=== PATIENT | male | born 1980 | race Caucasian/White ===

== ENCOUNTER 2018-01-25 02:45 | Emergency (ER) | payer OTHER ==
[2018-01-25] MEDS ORDERED: Fluorescein 0.6 MG Ophth Strip ONE (03:12)
[2018-01-25] MEDS ORDERED: Fluorescein 0.6 MG Ophth Strip EYEBOTH ONE (03:20)
--- NOTE | 2018-01-25 03:34 | EDM.PDOC ---
ED HPI GENERAL MEDICAL PROBLEM - General Chief Complaint: Eye Problems Stated Complaint: EYES BURNING Time Seen by Provider: 01/25/18 03:34 Source of Information: Reports: Patient - History of Present Illness Onset: Today Bilateral Eye Pain Score (Numeric/FACES): 6 - Related Data Allergies Allergy/AdvReac Type Severity Reaction Status Date / Time No Known Allergies Allergy Verified 01/25/18 02:56 Past Medical History - Past Health History Medical/Surgical History: Denies Medical/Surgical History Social & Family History - Tobacco Use Smoking Status *Q: Former Smoker Used Tobacco, but Quit: Yes Month/Year Tobacco Last Used: 2001 - Caffeine Use Caffeine Use: Reports: None - Recreational Drug Use Recreational Drug Use: No ED ROS GENERAL - Review of Systems Review Of Systems: See Below ED EXAM GENERAL W FULL EYE - Physical Exam Exam: See Below Course - Vital Signs Last Recorded V/S: Last Vital Signs Temp 36.6 C 01/25/18 02:51 Pulse 83 01/25/18 02:51 Resp 20 01/25/18 02:51 BP 142/89 H 01/25/18 02:51 Pulse Ox 93 L 01/25/18 02:51 - Orders/Labs/Meds Orders: Active Orders 24 hr Category Date Time Status Gentamicin [Gentak 0.3% Ophth Oint] Med 01/25/18 09:00 Active 1 gm EYEBOTH TID Medication Orders Gentamicin Sulfate (Gentak 0.3% Ophth Oint) 1 gm EYEBOTH TID WESLEY Meds: Medications Generic Name Dose Route Start Last Admin Trade Name Freq PRN Reason Stop Dose Admin Gentamicin Sulfate 1 gm 01/25/18 09:00 Gentak 0.3% Ophth Oint EYEBOTH TID WESLEY Discontinued Medications Generic Name Dose Route Start Last Admin Trade Name Freq PRN Reason Stop Dose Admin Fluorescein Sodium Confirm 01/25/18 03:12 Ful-Ashley Administered 01/25/18 03:13 Dose 0.6 mg .ROUTE .STK-MED ONE Fluorescein Sodium 0.6 mg 01/25/18 03:20 Ful-Ashley EYEBOTH 01/25/18 03:21 ONETIME ONE Gentamicin Sulfate Confirm 01/25/18 03:25 Gentak 0.3% Ophth Oint Administered 01/25/18 03:26 Dose 3.5 gm .ROUTE .STK-MED ONE Departure - Departure Time of Disposition: 03:29 Disposition: Home, Self-Care 01 Condition: Good Clinical Impression: Photokeratitis of both eyes - Discharge Information *PRESCRIPTION DRUG MONITORING PROGRAM REVIEWED*: Not Applicable *COPY OF PRESCRIPTION DRUG MONITORING REPORT IN PATIENT ANGELA: Not Applicable Instructions: Ultraviolet Keratitis, Ttoo-wp-[id number], How to Use Eye Drops and Eye Ointments Referrals: PCP,None [Primary Care Provider] - Additional Instructions: Return to clinic or ER if symptoms worsen or fail to resolve within 4 days. Wear sunglasses. Exercise caution when working around wielding, as we discussed. Apply ointment to eye, as instructed, until symptoms are resolved. - My Orders Last 24 Hours: My Active Orders 01/25/18 09:00 Gentamicin [Gentak 0.3% Ophth Oint] 1 gm EYEBOTH TID - Assessment/Plan Last 24 Hours: My Active Orders 01/25/18 09:00 Gentamicin [Gentak 0.3% Ophth Oint] 1 gm EYEBOTH TID
--- NOTE | 2018-01-25 06:15 | ER ---
REASON FOR EMERGENCY ROOM VISIT: Both eyes burning. 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 Yesterday, he was around some welding and was actually quite close to it. He states that he did not actually look directly at the welding, but looked somewhat to the side. He was not wearing any atomic welder's glasses. He was also around some grinding work that was done, but he states that he did wear a shield at that time. He denies any sensation throughout the day yesterday of any foreign body going into his eyes. When he went to bed last evening around 8 p.m., he was fine, and then he woke this morning to get ready for work and noticed severe burning and swelling of both eyes. He tried to apply drops, but it burned too badly. He rates the pain as a 6/10. It seems to be somewhat worse in the left eye, but both eyes are affected. He states that his vision is slightly foggy as a result of this. PAST MEDICAL HISTORY: See EMR. CURRENT MEDICATIONS: See EMR. REVIEW OF SYSTEMS: Pertinent positives and negatives as in HPI. ALLERGIES: None to medications. PHYSICAL EXAMINATION: VITAL SIGNS: He is afebrile. See EMR. HEENT: Examination of both eyes. He has obvious erythema about his face and both lids. Both upper and lower lids seem slightly edematous. There is erythema on his lids as well consistent with the effects of welding or ultraviolet radiation. His visual acuity is 20/40 on the left and 20/50 on the right. COURSE IN THE EMERGENCY ROOM: I applied 2 drops of proparacaine ophthalmic solution to both eyes and waited about 1 minute and then inserted fluorescein strips into both eyes. I examined with magnification and using a black light, both eyes. He had obvious tearing and chemosis involving his bulbar conjunctiva. It is about the same on both sides. After fluorescein staining, his corneas appeared somewhat hazy bilaterally. There was no discrete abrasion noted. He did have one very small, thin, hair-like foreign body slightly adherent to the right cornea which was easily removed with the use of a sterile Q-tips. No other foreign bodies were seen. I everted both upper and lower lids and inspected carefully. I then irrigated both eyes copiously with approximately 50 mL of normal saline each and applied gentamicin ophthalmic ointment to both eyes. IMPRESSION: Photokeratitis (atomic welder's flash) bilaterally. PLAN: I told the patient he should wear sunglasses the rest of the day. He probably for comfort sake will want a stay home today. I instructed him to apply the gentamicin ophthalmic ointment to both eyes t.i.d. until his symptoms are resolved. Should he develop significantly increased symptoms or purulence or not experience any improvement over the next 3 or 4 days or any worsening in general or any questions at all, he should give us a call or better yet to be seen back in the emergency room for a recheck. I cautioned him to abstain from rubbing his eyes at least for the next 4 to 6 hours until the local anesthetic has worn off completely and explained why this is important. All questions were answered, he understands and agrees with this plan. ELISABET /[id number]
== END 2018-01-25 03:45 | disposition home or self-care (01) ==
LOC: JD.ED 02:45
DX: H16.133 Photokeratitis, bilateral (principal)
CPT/HCPCS: 99283